=== PATIENT | male | born 1965 | race Caucasian/White ===

== ENCOUNTER 2023-07-09 16:46 | Emergency (ER) | payer MEDICARE, SELFPAY ==
[2023-07-09 16:56] VITALS: BP 119/50; PULSE 97; RESP 20; TEMP 36.6; O2SAT 100
--- NOTE | 2023-07-09 17:03 | ED.MALEGU ---
HPI - Male Genitourinary General Chief complaint: Urogenital-Male Stated complaint: Urinary Problem Source: patient Mode of arrival: ambulatory Limitations: no limitations History of Present Illness HPI Narrative: 57 y/o male with hx liver disease, diabetes, and heart disease presented for concern for UTI; c/o urinary hesitancy, confusion, and sleeping more. States he slept until 3pm today. Reports yesterday he was unsteady walking. States the liver disease causes frequent UTIs due to elevated ammonia. States he feels he has to wait several seconds for the urine stream to start, and has to push at times. Reports a known renal stone that is too large to pass. Admits blood glucose has been running 300s in the morning. Had labwork 3 days ago. Denies hematuria, nausea, vomiting, abdominal pain, flank pain, constipation, diarrhea, fevers or chills. Related Data Home Medications Medication Instructions Recorded Confirmed amitriptyline 75 mg tablet 75 mg PO DAILY 07/09/23 07/09/23 lactulose 10 gram/15 mL oral 15 ml PO QID 07/09/23 07/09/23 solution metoprolol tartrate 25 mg tablet 12.5 mg PO BID 07/09/23 07/09/23 pregabalin 100 mg capsule 100 mg PO DIRECTED 07/09/23 07/09/23 tramadol 50 mg tablet 50 mg PO Q6-8H PRN Pain, Moderate 07/09/23 07/09/23 Allergies Allergy/AdvReac Type Severity Reaction Status Date / Time No Known Allergies Allergy Verified 07/09/23 17:04 Review of Systems Review of Systems: CONSTITUTIONAL: Denies body aches, fever, chills, or sweats. EYES: Denies visual changes, redness, or discharge. ENT: Denies rhinorrhea, congestion, sore throat, or otalgia. CARDIOVASCULAR: Denies chest pain, palpitations, or edema. RESPIRATORY: Denies cough or dyspnea. GASTROINTESTINAL: Denies abdominal pain, nausea, vomiting, or diarrhea. GENITOURINARY: Reports urinary hesitancy. Denies dysuria or hematuria. SKIN: Denies rash, itching, or wounds. MUSCULOSKELETAL: Denies back pain, joint pain, or myalgia. NEUROLOGIC: Reports confusion Denies headache, numbness, tingling, or weakness. All systems reviewed & are unremarkable except as noted in HPI and below PMFSH Past Medical History Medical History (Updated 07/09/23 @ 17:55 by Pily Ross APRN) Diabetes Liver disease Surgical History Surgical History (Updated 07/09/23 @ 17:47 by Pily Ross APRN) AICD (automatic cardioverter/defibrillator) present Comments At time of signature, I have reviewed and agree with nursing past medical, surgical, social and family history unless otherwise noted. Please see nursing chart for further information. There is no relevant family history pertinent to the presenting complaint Exam Narrative: GENERAL: mildly ill-appearing. EYES: EOMI. No redness or drainage. Conjunctivae normal. ENT: Mucous membranes pink and moist. No rhinorrhea. NECK: Normal AROM. CHEST: No respiratory distress. Clear to auscultation. HEART: irregular rate and rhythm. Murmur is appreciated. Normal peripheral pulses. ABDOMEN: Soft, nontender, mildly distended, normal active bowel sounds. EXTREMITIES: Normal range of motion. Trace edema. SKIN: Warm, dry, no rash. Pale Capillary refill normal. Normal skin turgor. NEURO: Alert and oriented x3. Forgets some words. Gait steady with cane PSYCH: Normal affect. Talkative. Course Course Emergency Course: Patient is aware of diagnosis, understands and agrees to treatment plan. Anticipatory guidance given. Patient agrees to follow-up as directed and is aware of reasons to seek care at the emergency department. Portions of this record may have been created with voice recognition software Level of Care: Express Care Visit Vital Signs Vital signs: Vital Signs Temperature 97.9 F 07/09/23 16:56 Pulse Rate 97 07/09/23 16:56 Respiratory Rate 20 07/09/23 16:56 Blood Pressure 119/50 L 07/09/23 16:56 Pulse Oximetry 100 07/09/23 16:56 Oxygen Delivery Room Air 07/09/23 16
== END 2023-07-09 17:30 | disposition left against medical advice (07) ==
PROVIDERS: Emergency Provider Nurse Practitioner Family; PCP Family Medicine
DX: R53.83 Other fatigue (principal); E11.9 Type 2 diabetes mellitus without complications; Z95.810 Presence of automatic (implantable) cardiac defibrillator; K76.9 Liver disease, unspecified
CPT/HCPCS: 81003; 87086; 99213; G0463